=== PATIENT | female | born 1950 | race Caucasian/White ===

== ENCOUNTER 2024-07-24 06:17 | Day surgery (SDC) | payer BC, MEDICAID ==
[2024-07-17 11:58] LABS: BASOPHILS # (AUTO) 0.1 X10'3 (0-0.2); BASOPHILS % (AUTO) 0.8 % (0-1); EOSINOPHILS # (AUTO) 0.1 X10'3 (0-0.9); EOSINOPHILS % (AUTO) 1.4 % (0-6); LYMPHOCYTES # (AUTO) 2.3 X10'3 (1.1-4.8); LYMPHOCYTES % (AUTO) 27.5 % (21-51); MEAN CORPUSCULAR HEMOGLOBIN 31.3 PG (27.0-31.0); MEAN CORPUSCULAR HGB CONC 32.9 g/dL (33.0-36.5); MEAN CORPUSCULAR VOLUME 95.2 FL (78-98); MEAN PLATELET VOLUME 7.8 FL (7.4-10.4); MONOCYTES # (AUTO) 0.6 X10'3 (0-0.9); MONOCYTES % (AUTO) 7.2 % (2-12); NEUTROPHILS # (AUTO) 5.3 X10'3 (1.8-7.7); NEUTROPHILS % (AUTO) 63.1 % (42-75); PRE OP HEMATOCRIT 45.2 % (35.0-45.0); PRE OP HEMOGLOBIN 14.9 g/dL (12.0-16.0); PRE OP PLATELET COUNT 245 X10'3 (140-440); PRE OP WHITE BLOOD COUNT 8.4 10'3 (4.8-10.8); RED BLOOD COUNT 4.75 X10'6 (4.20-5.60); RED CELL DISTRIBUTION WIDTH 13.6 % (11.5-14.5)
[2024-07-17 12:17] LABS: ALBUMIN 3.8 G/DL (3.4-5.0); ALKALINE PHOSPHATASE 85 IU/L (46-116); BLOOD UREA NITROGEN 28 MG/DL (7-18); CHLORIDE 104 MMOL/L (99-107); PRE OP ALT 28 U/L (30-65); PRE OP ANION GAP 7 (8-16); PRE OP AST 23 U/L (10-37); PRE OP BILIRUB, TOTAL 0.5 MG/DL (0.0-1.0); PRE OP GLUCOSE 119 MG/DL (70-104); PRE OP POTASSIUM 4.2 MMOL/L (3.4-5.1); PRE OP SODIUM 137 MMOL/L (135-145); TOTAL CARBON DIOXIDE 26.1 MMOL/L (24-32); TOTAL PROTEIN 7.8 G/DL (6.4-8.2)
[2024-07-17 12:36] LABS: BUN/CREATININE RATIO 32.9 (10.0-20.0); CALCIUM 9.5 MG/DL (8.5-10.1); CREATININE 0.85 MG/DL (0.40-0.90); eGFR 66 ML/MIN
[~2024-07-24] VITALS: Ht 165.1 cm; Wt 126.0 kg
[~2024-07-24 06:17] MED LIST: ACET-1025 PO; ASPI-1265 PO; CALC600T22 PO; CARV25TA2 PO; DOCU-337 PO; DOCUMENT DATE & TIME OF BETA-BLOCKER PO ONE; HYDR25TA5 PO; IBUP-1985 PO; LOVA20TA2 PO; NIFE-72 PO; OMEP20CA15 PO; POTA-208 PO; VALS320T17 PO
[2024-07-24 06:25] VITALS: BP 161/72; PULSE 68; RESP 18; TEMP 98.8; O2SAT 95
[2024-07-24] MEDS: famotidine 20mg tablet PO ONE (07:44)
[2024-07-24] MEDS ORDERED: morphine 2 MG/ML inj. syringe IV PRN (07:45)
[2024-07-24] MEDS: Cefazolin 3 GM/100ML NS IVPB 100 ML IV ONE (07:45)
[2024-07-24] MEDS ORDERED: ringers solution, lacted 1,000 ML IV SCH (07:45)
[2024-07-24] MEDS ORDERED: ondansetron/PF 4mg/2ml inj IV PRN (07:45)
[2024-07-24] MEDS ORDERED: labetalol 20mg/4ml (5mg/ml) syringe IV PRN (07:45)
[2024-07-24] MEDS: ringers solution, lacted 1,000 ML IV SCH (07:45)
[2024-07-24] MEDS ORDERED: morphine 4 MG/ML inj SYRINge IV PRN (07:45)
[2024-07-24] MEDS ORDERED: MIDAZolam 1 MG/ML 5ML VIAL ONE (07:54)
[2024-07-24] MEDS ORDERED: fentaNYL/PF 50MCG/1 ML 2ML syringe ONE (07:54)
[2024-07-24] MEDS ORDERED: propofol inj 20 ML IV ONE (07:56)
[2024-07-24] MEDS ORDERED: LIDOcaine 2% (20mg/ml) 5ml vial ONE (07:56)
[2024-07-24 08:36] VITALS: BP 160/57; PULSE 72; RESP 16; O2SAT 93
[2024-07-24 08:40] VITALS: BP 147/63; PULSE 71; RESP 14; O2SAT 93
[2024-07-24 08:50] VITALS: BP 149/64; PULSE 72; RESP 16; O2SAT 90
[2024-07-24 09:00] VITALS: BP 152/65; PULSE 75; RESP 15; O2SAT 96
[2024-07-24] MEDS: BUPIVAcaine 2.5mg/ml inj 50ml vial (contains preservative) SQ ONE (09:50)
== END 2024-07-24 09:16 | disposition home or self-care (01) ==
LOC: PAS 06:17
PROVIDERS: ATTEND Orthopaedic Surgery Hand Surgery
DX: G56.01 Carpal tunnel syndrome, right upper limb (principal); I10 Essential (primary) hypertension; E66.9 Obesity, unspecified; K21.9 Gastro-esophageal reflux disease without esophagitis; Z87.891 Personal history of nicotine dependence; Z79.899 Other long term (current) drug therapy; Z90.710 Acquired absence of both cervix and uterus; Z98.890 Other specified postprocedural states; Z68.42 Body mass index [BMI] 45.0-49.9, adult; Z80.9 Family history of malignant neoplasm, unspecified; Z82.61 Family history of arthritis
CPT/HCPCS: 36415; 64721; 80053; 82948; 85025; J0690; J2250; J2704; J3010; J3490; J7030; J7120; Z7506; Z7512; A4215; A6449